=== PATIENT | male | born 1955 | race Caucasian/White ===

== ENCOUNTER 2018-01-17 12:26 | Emergency (ER) | payer SELFPAY ==
[2018-01-17] MEDS ORDERED: HYDROcodone/Acetaminophen 10/325 mg Tablet ONE (13:02)
--- NOTE | 2018-01-17 13:38 | RAD ---
THREE VIEWS RIGHT SHOULDER: Date: 01-17-18 Comparison: None. History: Picking up a heavy rock, heard a pop in the right shoulder. FINDINGS: There is degenerative change at the right acromioclavicular joint with interspace narrowing and osteo phyte formation. There is no widening of the AC or CC interspace. No displaced fracture or evidence o f dislocation seen. IMPRESSION: Degenerative changes of the acromioclavicular joint with no acute fracture or dislocation seen. POS: BE
== END 2018-01-17 14:00 | disposition home or self-care (01) ==
LOC: ERS 12:26
DX: M25.511 Pain in right shoulder (principal); I10 Essential (primary) hypertension; X50.0XXA Overexertion from strenuous movement or load, initial encounter

== ENCOUNTER 2021-12-18 13:44 | Outpatient (CLI) | payer MEDICARE ==
[2021-12-18 15:19] LABS: #Basophils 0.1 10x3/uL (0.0-0.2); #Eosinphils 0.2 10x3/uL (0.0-0.5); #Monocytes 0.7 10x3/uL (0.0-1.1); #Neutrophils 5.2 10x3/uL (1.5-8.4); %Basophils 0.8 % (0.0-2.0); %Eosinophils 2.2 % (0.0-6.0); %Lymphocytes 25.6 % (18.0-47.0); %Monocytes 8.7 % (0.0-10.0); %Neutrophils 62.1 % (40.0-75.0); Mean Corpuscular HGB CONC 34.2 g/dL (32.0-36.0); Mean Corpuscular Hemoglobin 31.6 pg (27.0-33.0); Mean Corpuscular Volume 92.4 fl (81.2-95.1); Mean Platelet Volume 10.8 fl (7.4-10.4); Platelet Count 322 10x3/uL (150-450); RBC Distribution Width 12.4 % (11.5-14.5); Red Blood Cell (RBC) Count 4.75 10x6/uL (4.32-5.72); White Blood Cell (WBC) Count 8.4 10x3/uL (3.5-10.5)
[2021-12-18 15:27] LABS: INR-International Normal Ratio 0.9; Prothrombin Time 10.1 sec (9.5-12.1)
[2021-12-18 15:31] LABS: Anion Gap 18 mmol/L (10-20); BUN (Urea Nitrogen) 11 mg/dL (8.4-25.7); Calc. Creatinine Clearance 0 mL/min (70-130); Calcium 9.4 mg/dL (7.8-10.44); Carbon Dioxide 25 mmol/L (23-31); Chloride 103 mmol/L (98-107); Glucose 78 mg/dL (80-115); Potassium 4.1 mmol/L (3.5-5.1); Sodium 142 mmol/L (136-145)
[2021-12-19 00:54] LABS: SARS-CoV-2 PCR by NAA Not Detected (NotDetected)
== END 2021-12-18 13:45 | disposition home or self-care (01) ==
LOC: LABBT 13:44
PROVIDERS: ATTEND Orthopaedic Surgery
DX: Z01.818 Encounter for other preprocedural examination (principal); M16.12 Unilateral primary osteoarthritis, left hip; Z20.822 Contact with and (suspected) exposure to COVID-19
CPT/HCPCS: 80048; 85025; 85610; 87081; U0003; U0005; 93005; 93010

== ENCOUNTER 2021-12-23 05:39 | Observation (INO) | payer MEDICARE ==
[2021-12-19 14:23] VITALS: BMI 28.1
[2021-12-23] MEDS ORDERED: Sodium Chloride 0.9% 100 ML ONE ×2 (06:06→06:58)
[2021-12-23] MEDS ORDERED: Vancomycin (BATCH) 1.5 GRAM/300 ML BAG ONE (06:06)
[2021-12-23] MEDS ORDERED: Tranexamic Acid 1,000 MG/10 ML VIAL ONE ×2 (06:06→09:24)
[2021-12-23] MEDS ORDERED: fentaNYL Citrate/PF 100 MCG/2 ML SYRINGE ONE ×2 (06:20→06:21)
[2021-12-23] MEDS ORDERED: Propofol 1,000 MG/100 ML VIAL IV ONE (06:36)
[2021-12-23] MEDS ORDERED: Bupivacaine 0.75% W/DEXTROSE 8.25% 2 ML AMP ONE (06:36)
[2021-12-23] MEDS ORDERED: Propofol 500 MG/50 ML VIAL ONE (06:36)
[2021-12-23] MEDS ORDERED: Bupivacaine PF 0.5% 30 ML VIAL ONE (06:47)
[2021-12-23] MEDS ORDERED: Fentanyl 100 MCG/2 ML VIAL ONE (06:49)
[2021-12-23] MEDS ORDERED: Midazolam HCl 2 mg/2 ml Vial ONE (06:49)
[2021-12-23] MEDS ORDERED: CEFAZOLIN 2 GM VIAL ONE (06:58)
[2021-12-23] MEDS ORDERED: Promethazine HCl 25 MG/ML VIAL IM PRN (07:05)
[2021-12-23] MEDS ORDERED: Zolpidem Tartrate 5 MG TAB PO PRN (07:05)
[2021-12-23] MEDS ORDERED: diphenhydrAMINE 25 MG CAP PO PRN (07:05)
[2021-12-23] MEDS ORDERED: Ondansetron PF 4 MG/2 ML Vial IVP PRN (07:05)
[2021-12-23] MEDS ORDERED: Fentanyl 100 MCG/2 ML VIAL SLOW IVP PRN (07:05)
[2021-12-23] MEDS ORDERED: Acetaminophen 325 MG TAB PO PRN (07:05)
[2021-12-23] MEDS ORDERED: Ondansetron PF 4 MG/2 ML Vial ONE (07:20)
[2021-12-23] MEDS ORDERED: ePHEDrine 50 MG/ML VIAL ONE (07:20)
[2021-12-23] MEDS ORDERED: PHENYLEPHRINE-NS 100 MCG/ML 10 ML SYRINGE ONE (07:20)
[2021-12-23] MEDS ORDERED: Dexamethasone 20 MG/5 ML VIAL ONE (07:20)
[2021-12-23] MEDS ORDERED: Aspirin 81 mg Enteric Coated Tablet PO SCH (09:00)
[2021-12-23] MEDS: HYDROcodone/Acetaminophen 10/325 mg Tablet PO PRN ×4 (11:11→20:01)
[2021-12-23] MEDS: Aspirin 81 mg Enteric Coated Tablet PO SCH ×2 (11:52→19:56)
[2021-12-23] MEDS: Ferrous Gluconate 324 MG TAB PO SCH ×2 (11:52→19:57)
[2021-12-23] MEDS: Multivitamin W/ Minerals 1 TAB PO SCH (11:52)
[2021-12-23] MEDS: Amlodipine 10 MG TAB PO SCH (11:52)
[2021-12-23] MEDS: Hydrochlorothiazide 25 MG TAB PO SCH (11:52)
[2021-12-23] MEDS: Sodium Chloride 0.9% 1,000 ML IV SCH ×2 (11:52→18:47)
[2021-12-23] MEDS: Senokot S 8.6-50 MG TAB PO SCH ×2 (11:53→19:57)
[2021-12-23] MEDS ORDERED: Ketorolac Tromethamine 30 MG/ML VIAL IM SCH (14:00)
[2021-12-23] MEDS: Ketorolac Tromethamine 30 MG/ML VIAL IVP SCH ×2 (14:23→21:43)
[2021-12-23] MEDS: CEFAZOLIN 2 GM in Sodium Chloride 0.9% 100 ML IVPB SCH ×2 (15:36→23:40)
[2021-12-24] MEDS: Sodium Chloride 0.9% 1,000 ML IV SCH (05:49)
[2021-12-24 05:50] LABS: Hemoglobin 10.6 g/dL (14.0-18.0); Mean Corpuscular HGB CONC 32.8 g/dL (32.0-36.0); Mean Corpuscular Hemoglobin 32.6 pg (27.0-31.0); Mean Corpuscular Volume 99.4 fL (78.0-98.0); Mean Platelet Volume 8.6 fL (7.4-10.4); Platelet Count 224 thou/uL (130-400); RBC Distribution Width 11.5 % (11.5-14.5); Red Blood Cell (RBC) Count 3.25 mill/uL (4.70-6.10); White Blood Cell (WBC) Count 17.5 thou/uL (4.8-10.8)
[2021-12-24] MEDS: HYDROcodone/Acetaminophen 10/325 mg Tablet PO PRN ×2 (05:54→10:52)
[2021-12-24] MEDS: Ketorolac Tromethamine 30 MG/ML VIAL IVP SCH (05:54)
[2021-12-24] MEDS: Aspirin 81 mg Enteric Coated Tablet PO SCH (08:01)
[2021-12-24] MEDS: Hydrochlorothiazide 25 MG TAB PO SCH (08:01)
[2021-12-24] MEDS: Multivitamin W/ Minerals 1 TAB PO SCH (08:01)
[2021-12-24] MEDS: Ferrous Gluconate 324 MG TAB PO SCH (08:01)
[2021-12-24] MEDS: Amlodipine 10 MG TAB PO SCH (08:02)
[2021-12-24] MEDS: Senokot S 8.6-50 MG TAB PO SCH (09:05)
[2021-12-24 09:18] VITALS: BP 136/76; TEMP 97.6
== END 2021-12-24 12:50 | disposition home or self-care (01) ==
LOC: SDC 05:39 → SURG B 07:05 → SDC 10:35 → SURG B 10:36
PROVIDERS: ADMIT Orthopaedic Surgery; ATTEND Orthopaedic Surgery
PROC: 0SRB03A Replacement of Left Hip Joint with Ceramic Synthetic Substitute, Uncemented, Open Approach (ICD-10-PCS; principal; 2021-12-23)
PROC: 3E0T3BZ Introduction of Anesthetic Agent into Peripheral Nerves and Plexi, Percutaneous Approach (ICD-10-PCS; 2021-12-23)
DX: M16.0 Bilateral primary osteoarthritis of hip (principal); I10 Essential (primary) hypertension; E78.5 Hyperlipidemia, unspecified; Z79.82 Long term (current) use of aspirin; Z79.899 Other long term (current) drug therapy
CPT/HCPCS: 27130; 64999; 73502; 85027; 96365; 96375 ×2; 96376 ×2; 97110; 97116; 97139 ×4; 97530 ×2; 97535; C1776; G0378 ×2; J3370; 36415; J1100; J1885; J2250; J2405; J2704; J3010; J3490; S0020